=== PATIENT | female | born 1965 | race Asian ===

== ENCOUNTER 2018-10-18 10:39 | Day surgery (SDC) | payer OTHER ==
[~2018-10-18] VITALS: Ht 149.9 cm; Wt 49.0 kg
[2018-10-18] MEDS ORDERED: fentaNYL 0.05 MG/ML VIAL ONE (14:08)
== END 2018-10-18 14:35 | disposition home or self-care (01) ==
LOC: MDS 10:39 → MMU 10:39 → MDS 14:35
PROVIDERS: ATTEND Internal Medicine Gastroenterology
DX: Z12.11 Encounter for screening for malignant neoplasm of colon (principal)
CPT/HCPCS: 45378; J3010